=== PATIENT | female | born 1955 | race Caucasian/White ===

== ENCOUNTER 2017-01-30 21:23 | Emergency (ER) | payer MEDICARE, MEDICAID ==
[2017-01-30 21:45] LABS: % BASOPHILS 0.4 % (0.0-2.0); % EOSINOPHILS 2.6 % (0.0-5.0); % LYMPHOCYTES 39.8 % (20.0-50.0); % NEUTROPHILS 44.2 % (40.0-80.0); HEMATOCRIT 32.4 % (35.0-45.0); HEMOGLOBIN 11.1 gm/dL (11.7-15.5); MEAN CELL VOLUME 85.5 fl (81-100); MEAN CORPUSCULAR HEMOGLOBIN 29.2 pg (27.0-31.0); MEAN CORPUSCULAR HGB CONC 34.2 pg (28.0-36.0); MEAN PLATELET VOLUME 8.3 fl; NEUTROPHILE ABSOLUTE 3.1 Th/cmm (1.8-8.0); PLATELET COUNT 202 Th/cmm (150-400); RED CELL DISTRIBUTION WIDTH 16.7 % (11.5-20.0); WHITE BLOOD COUNT 6.9 Th/cmm (4.8-10.8)
[2017-01-30 21:58] LABS: INR 1.03 (0.5-1.4); PROTHROMBIN TIME (TEST) 10.7 SECONDS (9.5-11.5)
[2017-01-30 22:03] LABS: ALB/GLOB RATIO 1.4 (1.0-1.8); ALKALINE PHOSPHATASE 73 U/L (34-104); ANION GAP 11.3 (7.0-16.0); BILIRUBIN,TOTAL 0.3 mg/dL (0.3-1.0); BUN - UREA NITROGEN 14 mg/dL (7-25); CALCIUM SERUM 9.5 mg/dL (8.6-10.3); CARBON DIOXIDE 22.4 mEq/L (21.0-31.0); CHLORIDE 105 mEq/L (98-107); CHOLESTEROL 157 mg/dL (<200); CREATININE - SERUM 0.7 mg/dL (0.6-1.2); GLUCOSE 93 mg/dL (70-105); POTASSIUM SERUM 3.7 mEq/L (3.5-5.1); SGOT 18 U/L (13-39); SGPT/ALT 9 U/L (7-52); SODIUM SERUM 135 mEq/L (136-145); TRIGLYCERIDES 157 mg/dL (<150)
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
[2017-01-30 23:37] LABS: URINE BILIRUBIN NEGATIVE (NEGATIVE); URINE BLOOD SMALL (NEGATIVE); URINE GLUCOSE (UA) NEGATIVE (NEGATIVE); URINE KETONE NEGATIVE (NEGATIVE); URINE PH 7.5 (4.6 - 8.0); URINE PROTEIN NEGATIVE (NEGATIVE); URINE UROBILINOGEN 0.2 E.U./dL (0.2 - 1.0)
[2017-01-30 23:43] LABS: URINE COLOR YELLOW
[2017-01-30 23:48] LABS: URINE BACTERIA NONE SEEN /hpf (NONE SEEN); URINE EPITHELIAL CELLS FEW /lpf (FEW)
--- NOTE | 2017-01-31 08:42 | Diagnostic Imaging Report ---
CHEST X-RAY: AP view INDICATION: Shortness of breath COMPARISON: None FINDINGS: Chronic lung changes are noted. There is no focal consolidation or pleural effusions The heart is normal in size. Tortuous aorta is noted. Degenerative changes of the spine are noted. IMPRESSION: Chronic lung changes with no focal consolidation identified. Tortuous aorta.
== END 2017-01-31 01:16 | disposition home or self-care (01) ==
LOC: ER 21:23
DX: F41.9 Anxiety disorder, unspecified (principal); N39.0 Urinary tract infection, site not specified; F20.9 Schizophrenia, unspecified; F31.9 Bipolar disorder, unspecified
CPT/HCPCS: 99285; 96372 ×2; 93005; 71010; 84484; 36415; 84443; 86592; 85025; 85610; 85730; 81001; 80053; 80061; J2060; J0696